=== PATIENT | female | born 1935 | race Caucasian/White ===

== ENCOUNTER → 2017-07-04 18:43 | Outpatient (CLI) | payer MEDICARE ==
[2015-06-20 13:57] VITALS: BMI 23.4
[~2017-07-04 18:43] MED LIST: BACLOFEN; CRESTOR; CRESTOR10 MG PO; EXELON PATCH; EXELON1 PATCH .2 TRANSDERM; FISH OIL 1,0001 CA1 PO; FLAXSEED OIL1000 MG PO; LEVAQUIN500 MG PO; METHOCARBANOL; TRAMADOL
== END | disposition home or self-care (01) ==
LOC: D.LABREF 18:43
DX: N39.0 Urinary tract infection, site not specified (principal)

== ENCOUNTER 2019-04-08 16:24 | Emergency (ER) | payer OTHER ==
[~2019-04-08] VITALS: Ht 167.6 cm; Wt 56.8 kg
[2019-04-08 16:33] VITALS: Ht 167.6 cm; Wt 56.8 kg
[2019-04-08 19:01] VITALS: BP 136/55
== END 2019-04-08 19:05 | disposition home or self-care (01) ==
LOC: D.ER 16:24
DX: M79.18 Myalgia, other site (principal); W05.0XXA Fall from non-moving wheelchair, initial encounter; Y92.129 Unspecified place in nursing home as the place of occurrence of the external cause